=== PATIENT | female | born 1975 | race Caucasian/White ===

== ENCOUNTER 2017-02-24 10:20 | Outpatient (CLI) ==
[2016-01-15 15:41] VITALS: BMI 37.3
--- NOTE | 2017-02-24 10:56 | DI ---
EXAM: KUB. History: Constipation. Findings: Nonspecific but nonobstructive bowel gas pattern. Moderate colonic stool. No free intrap eritoneal air. No acute osseous abnormalities. No suspicious calcifications. Impression: 1. Nonspecific but nonobstructive bowel gas pattern. 2. Moderate colonic stool.
== END 2017-02-24 10:21 | disposition home or self-care (01) ==
LOC: RAD 10:20
PROVIDERS: ATTEND Physician Assistant Medical
DX: K59.09 Other constipation (principal)

== ENCOUNTER 2017-06-29 12:16 | Outpatient (CLI) ==
[2016-01-15 15:41] VITALS: BMI 37.3
== END 2017-06-29 12:17 | disposition home or self-care (01) ==
LOC: LAB 12:16
PROVIDERS: ATTEND Psychiatry & Neurology Neurology
DX: G83.4 Cauda equina syndrome (principal); G89.4 Chronic pain syndrome; R20.2 Paresthesia of skin; R53.1 Weakness
CPT/HCPCS: 36415; 82607; 82746; 82947; 84165; 84436; 86038; 86430; 86592

== ENCOUNTER 2018-01-25 07:41 | Emergency (ER) ==
[2018-01-25 07:56] VITALS: BP 113/73; TEMP 97.5; BMI 40.6
--- NOTE | 2018-01-25 08:10 | ED.PDOC ---
General ED Provider: Dr. AUSTIN GARCIA Chief Complaint: Toe Pain/Injury Stated Complaint: Lt 5th toe and outer foot bruised. Unware of injury. Just noted yesterday and in fact her Lt 5th toe distally was turned outward and she twisted it back into place. Has 10 yrs hx cauda equina syndrome and has no perception of pain or sensation below her pelvis/waist region. Ambulates with use of cane. Time Seen by Physician: 08:00 Mode of Arrival: Walk-In Information Source: Patient Exam Limitations: No limitations Primary Care Provider: NENA WATTS Nursing and Triage Documentation Reviewed and Agree: Yes Does patient meet sepsis criteria?: No System Inflammatory Response Syndrome: Not Applicable Sepsis Protocol: For patient's 13 years and over: Temp is 96.8 and below OR 101 and greater Pulse >90 BPM Resp >20/minute Acutely Altered Mental Status Are patient's symptoms suggestive of a new infection, such as: -Pneumonia -Skin, Soft Tissue -Endocarditis -UTI -Bone, Joint Infection -Implantable Device -Acute Abdominal Infection -Wound Infection -Meningitis -Blood Stream Catheter Infection -Unknown Musculoskeletal Complaint Exam - Ankle/Foot Complaint/Exam Location of Injury: Reports: Left, Toe #5 Mechanism of Injury: Reports: No known trauma Onset/Duration: 24 hrs Symptoms Are: Reports: Still present Initial Severity: Moderate Current Severity: Moderate Location: Reports: Discrete Character: Reports: Unable to describe Alleviating: Reports: None Aggravating: Reports: None Able to Bear Weight: Yes Associated Signs and Symptoms: Reports: Swelling, Bruising Review of Systems - Review Of Systems Constitutional: Reports: No symptoms Eyes: Reports: No symptoms Ears, Nose, Mouth, Throat: Reports: No symptoms Respiratory: Reports: No symptoms Cardiac: Reports: No symptoms GI: Reports: No symptoms : Reports: No symptoms Musculoskeletal: Reports: No symptoms Skin: Reports: No symptoms Neurological: Reports: No symptoms Endocrine: Reports: No symptoms Hematologic/Lymphatic: Reports: No symptoms All Other Systems: Reviewed and Negative Past Medical History - Past Medical History Previously Healthy: Yes Endocrine: Reports: None Cardiovascular: Reports: None Respiratory: Reports: None Hematological: Reports: None Gastrointestinal: Reports: None Genitourinary: Reports: None Neuro/Psych: Reports: Other (CAUDA EQUINA ) Musculoskeletal: Reports: None Cancer: Reports: None Last Menstrual Period: now Other Pertinent Past Medical History: BACK, TONSILLS/ADENOIDS, JAW - Surgical History General Surgical History: Reports: Orthopedic (JAW), Back Surgery, Other ( BACK , JAW) - Family History Family History: Reports: Unknown - Social History Smoking Status: Never smoker Hx Substance Use: No Alcohol Screening: Occasionally Physical Exam - Physical Exam Appearance: Well-appearing, No pain distress, Well-nourished Eyes: CONSTANZA, EOMI, Conjunctiva clear ENT: Ears normal, Nose normal, Oropharynx normal Respiratory: Airway patent, Breath sounds clear, Breath sounds equal, Respirations nonlabored Cardiovascular: RRR, Pulses normal, No rub, No murmur GI/: Soft, Nontender, No masses, Bowel sounds normal, No Organomegaly Musculoskeletal: Normal strength, ROM intact, No edema, No calf tenderness Skin: Warm, Dry, Normal color Neurological: Sensation intact, Motor intact, Reflexes intact, Cranial nerves intact, Alert, Oriented Psychiatric: Affect appropriate, Mood appropriate Interpretation - Radiology Interpretation Radiology Interpretation By: Radiologist Radiology Results: Positive Xray Comments: possible small/ displaced chip fracture distal aspect 5th proximal phalynx Re-Evaluation - Re-Evaluation Time of Re-Evaluation: 08:55 Status: Unchanged Critical Care Note - Critical Care Note Total Time (mins): 0 Course - Course Orders, Labs, Meds: Orders Category Date Time Status FOOT, LEFT 3 VIEWS Stat RADS 01/25/18 08:12 Ordered Vital Signs: Temp Pulse Resp BP Pulse Ox 01/25/18 07:42 97.5 F L 53 L 20 113/73 98 Departure - Departure Time of Disposition: 08:55 Disposition: HOME SELF-CARE Discharge Problem: Fracture of proximal phalanx of lesser toe of left foot Instructions: Toe Fracture (ED) Condition: Good Pt referred to PMD for follow-up: Yes (1wk) IPMP verified?: No Additional Instructions: Devin splint Lt 5 th toe Tylenol or advil for pain Elevate, ice for swelling See PCP in next week Allergies/Adverse Reactions: Allergies No Known Allergies Allergy (Verified 01/25/18 07:53) Home Medications: Ambulatory Orders Gabapentin [Neurontin] 600 mg PO QID 11/14/14 Hydrocodone Bit/Acetaminophen [[place] 7.5-325] 7.5 mg PO TID PRN 11/14/14 Disposition Discussed With: Patient
--- NOTE | 2018-01-25 08:51 | DI ---
EXAM: Radiographs, left foot HISTORY: Left foot bruising at the level of the fifth toe and distal MTP joint. COMPARISON: 09/17/2013. TECHNIQUE: Three views. FINDINGS: Bone mineralization is decreased. Benign cyst at the base of the first proximal phalanx n oted. Prominent linear osseous fragment seen along the distal medial medial aspect of the fifth proxi mal phalanx on the frontal view only which appears different than on the prior examination. Otherwis e there is no fracture. No localized soft tissue abnormalities seen. IMPRESSION: Small displaced fracture fragment off the distal aspect of the fifth proximal phalanx is not excluded . Consider follow-up fifth toe radiographs if warranted.
== END 2018-01-25 09:09 | disposition home or self-care (01) ==
LOC: ED 07:41
DX: S92.512A Displaced fracture of proximal phalanx of left lesser toe(s), initial encounter for closed fracture (principal); W22.8XXA Striking against or struck by other objects, initial encounter; G83.4 Cauda equina syndrome
CPT/HCPCS: 99283

== ENCOUNTER 2018-02-22 11:46 | Outpatient (CLI) ==
--- NOTE | 2018-02-22 13:14 | DI ---
EXAM: KUB. History: Abdominal pain. Findings: Nonspecific but nonobstructive bowel gas pattern. Scattered colonic stool. No free intra peritoneal air. No suspicious calcifications. Facet hypertrophy within the lower lumbar spine. Mild to moderate degenerative changes of the right hip joint. Impression: No acute radiographic findings within the abdomen.
== END 2018-02-22 11:47 | disposition home or self-care (01) ==
LOC: RAD 11:46
PROVIDERS: ATTEND Physician Assistant
DX: R10.9 Unspecified abdominal pain (principal)

== ENCOUNTER 2018-03-27 16:59 | Emergency (ER) ==
[2018-03-27 17:04] VITALS: BMI 40.1
[2018-03-27] MEDS ORDERED: ZOFRAN 4 MG/2 ML IVP STA (19:37)
[2018-03-27] MEDS ORDERED: IMITREX SUBCUT STA (19:37)
[2018-03-27] MEDS ORDERED: SODIUM CHLORIDE 1,000 ML IV STA (19:37)
--- NOTE | 2018-03-27 19:41 | ED.PDOC ---
General ED Provider: Dr. CARRIE KELLEY Chief Complaint: Respiratory Complaint Stated Complaint: Patient is a 42 year old female who comes to the ER with left temporal headache for the past 5 days. Time Seen by Physician: 19:40 Mode of Arrival: Walk-In Information Source: Patient Exam Limitations: No limitations Primary Care Provider: NENA WATTS Nursing and Triage Documentation Reviewed and Agree: Yes Does patient meet sepsis criteria?: No System Inflammatory Response Syndrome: Not Applicable Sepsis Protocol: For patient's 13 years and over: Temp is 96.8 and below OR 101 and greater Pulse >90 BPM Resp >20/minute Acutely Altered Mental Status Are patient's symptoms suggestive of a new infection, such as: -Pneumonia -Skin, Soft Tissue -Endocarditis -UTI -Bone, Joint Infection -Implantable Device -Acute Abdominal Infection -Wound Infection -Meningitis -Blood Stream Catheter Infection -Unknown Neurological Complaint Exam - Headache Complaint/Exam Onset: Sudden Duration: constant Symptoms Are: Still present Timing: Constant Worst Headache Ever: No Initial Severity: Severe Current Severity: Severe Location: Left, Temporal Character: Reports: Throbbing Aggravating: Reports: Bright lights Alleviating: Reports: None Associated Signs and Symptoms: Reports: Dizziness, Nausea, Vomiting (x 1 yesterday ), Fever (with chills ). Denies: Neck pain, Neck stiffness, Decreased LOC, Visual changes Related History: Denies: Similar episode, Recent trauma, Remote trauma Related Surgical History: Reports: None SAH Risk Factors: Reports: None Meningitis Risk Factors: Reports: None SDH Risk Factors: Reports: None Temporal Arteritis Risk Factors: Reports: Female, . Denies: Over 60 years old, Polymyalgia Rheumatica Normal Head CT Within Last 12 Months: No Temporal Artery Tenderness: Present: None Sinus Tenderness: Present: None TMJ Tenderness: Present: None Glascow Coma Scale (see protocol): 15 Meningeal Signs Positive: No Pain on Passive Flexion-Positive Kernig's: No ROM Limited In: No Limitiations Focal Weakness: Present: None Focal Sensory Loss: Present: None Gait: Normal Nystagmus Present: No Gag Reflex Present: No [id number]: Normal Findings Romberg Test Positive: No Babinski Sign: Negative Right, Negative Left Heel to Toe Normal: Yes Head Picture: 1 - tenderness to palpation. Differential Diagnoses: Migraine, Viral Syndrome Review of Systems - Review Of Systems Constitutional: Reports: Chills, Fever (Low grade temp ) Eyes: Reports: Photophobia Ears, Nose, Mouth, Throat: Reports: No symptoms Respiratory: Reports: No symptoms Cardiac: Reports: No symptoms GI: Reports: No symptoms : Reports: No symptoms Musculoskeletal: Reports: No symptoms Skin: Reports: No symptoms Neurological: Reports: Anxiety, Headache, Numbness (lower extremities due to chronic condition cauda Aquina ), Weakness (lower extremities due to chronic condition cauda Aquina ) Endocrine: Reports: Excessive sweating Hematologic/Lymphatic: Reports: No symptoms All Other Systems: Reviewed and Negative Past Medical History - Past Medical History Previously Healthy: Yes Endocrine: Reports: None Cardiovascular: Reports: None Respiratory: Reports: None Hematological: Reports: None Gastrointestinal: Reports: None Genitourinary: Reports: None Neuro/Psych: Reports: Other (CAUDA EQUINA ) Musculoskeletal: Reports: Back Pain (chronic ) Cancer: Reports: None Last Menstrual Period: 1 week ago - Surgical History General Surgical History: Reports: Tonsillectomy, Adenoidectomy, Orthopedic (JAW ), Back Surgery, Other (JAW) - Family History Family History: Reports: Unknown - Social History Smoking Status: Never smoker Hx Substance Use: No Alcohol Screening: Occasionally Physical Exam - Physical Exam Appearance: Ill-appearing, Obese Ill-appearing: Mild Pain Distress: Severe (7/10) Eyes: CONSTANZA, EOMI, Conjunctiva clear ENT: Ears normal, Nose normal, Oropharynx normal Neck: Supple Respiratory: Airway patent, Breath sounds clear, Breath sounds equal, Respirations nonlabored Cardiovascular: RRR GI/: Soft, Nontender, No masses, Bowel sounds normal, No Organomegaly Musculoskeletal: Normal strength, ROM intact, No edema, No calf tenderness Skin: Warm, Dry, Normal color Neurological: Sensation intact, Motor intact, Reflexes intact, Cranial nerves intact, Alert, Oriented Psychiatric: Anxious - NIH Stroke Scale 1a. Level of Consciousness: 0=Alert and keenly responsive 1b. Level of Consciousness Questions: 0=Answers correctly to two questions 2. Best Gaze: 0=Normal 3. Visual: 0=No visual loss 4. Facial Palsy: 0=Normal 5a. Motor Left Arm: 0=No drift,arm holds 90 degrees for 10 sec., leg 30 degrees for 5 sec. 5b. Motor Right Arm: 0=No drift,arm holds 90 degrees for 10 sec., leg 30 degrees for 5 sec. 6a. Motor Left Le=Drifts before 10 seconds arm, 5 seconds leg (chronic) 6b. Motor Right Le=No drift,arm holds 90 degrees for 10 sec., leg 30 degrees for 5 sec. 8. Sensory: 1=Mild to moderate sensory loss (chronic) 9. Best Language: 0=No aphasia 10. Dysarthria: 0=Normal 11. Extincion and Inattention: 0=Normal Stroke Scale Total: 2 Interpretation - Radiology Interpretation Radiology Interpretation By: Radiologist Radiology Results: Negative Exam Interpreted: CXR, CT Scan Re-Evaluation - Re-Evaluation Time of Re-Evaluation: 20:47 Status: Improved Vital Signs Stable: Yes Pain Level: gone Appearance: NAD Critical Care Note - Critical Care Note Total Time (mins): 30 Course - Course Hematology/Chemistry: 03/27/18 19:55 03/27/18 19:55 Orders, Labs, Meds: Lab Review 03/27/18 03/27/18 03/27/18 19:45 19:55 19:55 WBC 11.24 H RBC 4.03 L Hgb 12.7 Hct 38.1 MCV 94.5 MCH 31.5 H MCHC 33.3 RDW Coeff of Sumi 11.7 Plt Count 253 Immature Gran % (Auto) 0.5 Neut % (Auto) 74.4 Lymph % (Auto) 15.8 [place] % (Auto) 7.7 Eos % (Auto) 1.2 Baso % (Auto) 0.4 Immature Gran # (Auto) 0.1 Neut # (Auto) 8.4 H Lymph # (Auto) 1.8 [place] # (Auto) 0.9 Eos # (Auto) 0.1 Baso # (Auto) 0.1 ESR Sodium 136.4 L Potassium 4.21 Chloride 102.2 Carbon Dioxide 29.6 Anion Gap 8.81 BUN 14.6 Creatinine 1.34 H Estimated GFR (MDRD) 44.00 BUN/Creatinine Ratio 10.89 Glucose 101.8 Lactic Acid Calcium 8.93 Total Bilirubin 0.40 AST 39.8 H ALT 53.2 H Alkaline Phosphatase 224.2 H Total Creatine Kinase Troponin I Total Protein 7.35 Albumin 3.81 Globulin 3.54 Albumin/Globulin Ratio 1.07 Procalcitonin Influ A Molecular Assay Negative by naat Influ B Molecular Assay Negative by naat 03/27/18 03/27/18 03/27/18 19:55 19:55 19:55 WBC RBC Hgb Hct MCV MCH MCHC RDW Coeff of Sumi Plt Count Immature Gran % (Auto) Neut % (Auto) Lymph % (Auto) [place] % (Auto) Eos % (Auto) Baso % (Auto) Immature Gran # (Auto) Neut # (Auto) Lymph # (Auto) [place] # (Auto) Eos # (Auto) Baso # (Auto) ESR 85 H Sodium Potassium Chloride Carbon Dioxide Anion Gap BUN Creatinine Estimated GFR (MDRD) BUN/Creatinine Ratio Glucose Lactic Acid 1.14 Calcium Total Bilirubin AST ALT Alkaline Phosphatase Total Creatine Kinase Troponin I Total Protein Albumin Globulin Albumin/Globulin Ratio Procalcitonin 0.70 Influ A Molecular Assay Influ B Molecular Assay 03/27/18 19:55 WBC RBC Hgb Hct MCV MCH MCHC RDW Coeff of Sumi Plt Count Immature Gran % (Auto) Neut % (Auto) Lymph % (Auto) [place] % (Auto) Eos % (Auto) Baso % (Auto) Immature Gran # (Auto) Neut # (Auto) Lymph # (Auto) [place] # (Auto) Eos # (Auto) Baso # (Auto) ESR Sodium Potassium Chloride Carbon Dioxide Anion Gap BUN Creatinine Estimated GFR (MDRD) BUN/Creatinine Ratio Glucose Lactic Acid Calcium Total Bilirubin AST ALT Alkaline Phosphatase Total Creatine Kinase 32.7 Troponin I < 0.012 Total Protein Albumin Globulin Albumin/Globulin Ratio Procalcitonin Influ A Molecular Assay Influ B Molecular Assay Orders Category Date Time Status EKG-(ED ONLY) Stat CARDIO 03/27/18 19:45 Completed ED APPLY O2 .ONCE EMERGENCY 03/27/18 19:38 Active ED LOOM DOFFER APPLIED .ONCE EMERGENCY 03/27/18 19:38 Active ED IV/MEDIPORT/POWERPORT .ONCE EMERGENCY 03/27/18 20:37 Active ED VITAL SIGNS Q1HR EMERGENCY 03/27/18 19:38 Active BLOOD CULTURE (ED ONLY) Stat LAB 03/27/18 19:55 Received CBC W/ AUTO DIFF Stat LAB 03/27/18 19:55 Completed COMPREHENSIVE METABOLIC PANEL Stat LAB 03/27/18 19:55 Completed CPK [CREATINE KINASE] Stat LAB 03/27/18 19:55 Completed CRP [C-REACTIVE PROTEIN] Stat LAB 03/27/18 19:55 Received ESR Stat LAB 03/27/18 19:55 Completed FLU A/B MOLECULAR Stat LAB 03/27/18 19:45 Completed LACTIC ACID Stat LAB 03/27/18 19:55 Completed MOLECULAR GROUP A STREP Stat LAB 03/27/18 19:45 Completed PROCALCITONIN Stat LAB 03/27/18 19:55 Completed TROPONIN I Stat LAB 03/27/18 19:55 Completed 0.9 % Sodium Chloride [Saline Flush] MEDS 03/27/18 20:36 Ordered 1 syr IVF PRN PRN Acetaminophen [Tylenol] MEDS 03/27/18 19:42 Discontinued 1,000 mg PO ONCE STA Ondansetron HCl/Pf [Zofran 4 mg/2 ml] MEDS 03/27/18 19:37 Discontinued 4 mg IVP ONCE STA Sodium Chloride 0.9% [Sodium Chloride] 1,000 ml MEDS 03/27/18 19:37 Active IV 100 mls/hr Sumatriptan Succinate [Imitrex] MEDS 03/27/18 19:37 Discontinued 6 mg SUBCUT ONCE STA CHEST, 2 VIEWS PA & LAT Stat RADS 03/27/18 19:[address] HEAD W/O CONTRAST Stat RADS 03/27/18 19:43 Completed Medications Generic Name Dose Route Start Last Admin Trade Name Freq PRN Reason Stop Dose Admin Sodium Chloride 1,000 mls @ 100 mls/hr 03/27/18 19:37 03/27/18 20:13 Sodium Chloride IV 03/28/18 05:36 100 mls/hr .Q10H STA Administration Sodium Chloride 1 syr 03/27/18 20:36 Saline Flush IVF PRN PRN To flush IV Discontinued Medications Generic Name Dose Route Start Last Admin Trade Name Freq PRN Reason Stop Dose Admin Acetaminophen 1,000 mg 03/27/18 19:42 03/27/18 20:04 Tylenol PO 03/27/18 19:43 1,000 mg ONCE STA Administration Ondansetron HCl 4 mg 03/27/18 19:37 03/27/18 20:14 Zofran 4 Mg/2 Ml IVP 03/27/18 19:38 4 mg ONCE STA Administration Sumatriptan Succinate 6 mg 03/27/18 19:37 03/27/18 20:04 Imitrex SUBCUT 03/27/18 19:38 6 mg ONCE STA Administration Vital Signs: Temp Pulse Resp BP Pulse Ox 03/27/18 17:00 99.9 F H 82 20 134/84 99 Departure - Departure Time of Disposition: 20:48 Disposition: HOME SELF-CARE Discharge Problem: Migraine headache Qualifiers: Migraine type: without aura Status migrainosus presence: without status migrainosus Intractability: not intractable Qualified Code(s): G43.009 - Migraine without aura, not intractable, without status migrainosus Instructions: Migraine Headache (ED) Condition: Good Pt referred to PMD for follow-up: Yes IPMP verified?: No Additional Instructions: Take medications as prescribed Follow up with PCP in 1-2 days Return if worse. Prescriptions: Butalb/Acetaminophen/Caffeine [Fioricet] 1 each PO TID PRN #20 tablet PRN Reason: Migraine headaches Allergies/Adverse Reactions: Allergies No Known Allergies Allergy (Verified 03/27/18 17:05) Home Medications: Ambulatory Orders Gabapentin [Neurontin] 600 mg PO QID 11/14/14 Hydrocodone Bit/Acetaminophen [[place] 7.5-325] 7.5 mg PO TID PRN 11/14/14 Butalb/Acetaminophen/Caffeine [Fioricet] 1 each PO TID PRN #20 tablet 03/27/18 Disposition Discussed With: Patient, Family
[2018-03-27] MEDS ORDERED: TYLENOL PO STA (19:42)
--- NOTE | 2018-03-27 20:11 | CT ---
EXAM: CT of the head without contrast. HISTORY: Left temporal headache. PROCEDURE: Contiguous axial CT images of the head without contrast with coronal reformats. FINDINGS: The ventricles and basal cisterns are normal in size and configuration. No evidence of m ass or midline shift. No intracranial hemorrhage or evidence of large vessel infarct. No extra-axia l fluid collection. The paranasal sinuses and mastoid air cells are well-aerated and normal in appea nasra. Impression: Negative CT of the head.
--- NOTE | 2018-03-27 20:31 | DI ---
EXAM: PA and lateral views of the chest HISTORY: Fever COMPARISON: None FINDINGS: The cardiomediastinal silhouette is normal. There is no pneumothorax or pleural effusion. There is no consolidation, nodule or mass. The osseous structures demonstrate mild degenerative di sease. There is separation of the right sternoclavicular joint, unchanged since 08/18/2011. IMPRESSION: No acute cardiopulmonary process
[2018-03-27 20:52] VITALS: BP 113/73; TEMP 99.6
== END 2018-03-27 21:36 | disposition home or self-care (01) ==
LOC: ED 16:59
DX: G43.009 Migraine without aura, not intractable, without status migrainosus (principal)
CPT/HCPCS: 36415; 80053; 82550; 83605; 84145; 84484; 85025; 85651; 86140; 87040; 87070; 87186; 87502; 87651; 93005; 93010; 96361; 96374; 99283

== ENCOUNTER 2018-03-29 12:10 | Outpatient (CLI) ==
[2018-03-29 12:36] VITALS: BMI 41.2
== END 2018-03-29 12:18 | disposition critical access hospital (66) ==
LOC: AMBL 12:10
PROVIDERS: ATTEND Emergency Medicine
DX: R51 Headache (principal)

== ENCOUNTER 2018-03-29 12:24 | Emergency (ER) ==
[2018-03-29 12:36] VITALS: BP 106/67; TEMP 99.1; BMI 41.2
--- NOTE | 2018-03-29 13:00 | ED.PDOC ---
General ED Provider: Dr. AUSTIN GARCIA Chief Complaint: Headache Stated Complaint: C/O migraine H/A since 03/23. Had a fever at that time. Still has H/A. Was sent to ER per order Adi José [facility], [facility] due to positive blood cultures. Continues to C/O migraine. Has not been on antibiotic per pt. States she self caths due to chronic Cauda Equina.Hx UTI. Not on antibiotics. Denies fever or chills Time Seen by Physician: 12:45 Mode of Arrival: Ambulance Information Source: Patient Exam Limitations: No limitations Primary Care Provider: NENA JOSÉ Seen Within Last 72 Hours for Same Complaint By: ED Nursing and Triage Documentation Reviewed and Agree: Yes Does patient meet sepsis criteria?: No System Inflammatory Response Syndrome: Not Applicable Sepsis Protocol: For patient's 13 years and over: Temp is 96.8 and below OR 101 and greater Pulse >90 BPM Resp >20/minute Acutely Altered Mental Status Are patient's symptoms suggestive of a new infection, such as: -Pneumonia -Skin, Soft Tissue -Endocarditis -UTI -Bone, Joint Infection -Implantable Device -Acute Abdominal Infection -Wound Infection -Meningitis -Blood Stream Catheter Infection -Unknown Neurological Complaint Exam - Headache Complaint/Exam Onset: Gradual Symptoms Are: Still present Timing: Constant Episodes Lasting: Hours Worst Headache Ever: No Initial Severity: Moderate Current Severity: Mild Location: Frontal, Parietal Character: Reports: Dull, Throbbing, Pressure Aggravating: Reports: None Alleviating: Reports: Rest, Position change Associated Signs and Symptoms: Denies: Dizziness, Seizure, Nausea, Vomiting, Sinus pressure, Fever, Neck pain, Neck stiffness, Decreased LOC, Visual changes Related History: Reports: Similar episode Related Surgical History: Reports: None Meningitis Risk Factors: Reports: None SDH Risk Factors: Reports: None Temporal Arteritis Risk Factors: Reports: None Normal Head CT Within Last 12 Months: Yes Fundoscopic Exam: Present: Normal Findings Papilledema Present: No Temporal Artery Tenderness: Present: None Sinus Tenderness: Present: None TMJ Tenderness: Present: None Meningeal Signs Positive: No Pain on Passive Flexion-Positive Kernig's: No ROM Limited In: No Limitiations Focal Weakness: Present: None Focal Sensory Loss: Present: None Gait: Normal Nystagmus Present: No Gag Reflex Present: Yes [id number]: Normal Findings Differential Diagnoses: Migraine, Other (UTI) Review of Systems - Review Of Systems Constitutional: Reports: No symptoms Eyes: Reports: No symptoms Ears, Nose, Mouth, Throat: Reports: No symptoms Respiratory: Reports: No symptoms Cardiac: Reports: No symptoms GI: Reports: No symptoms : Reports: No symptoms Musculoskeletal: Reports: No symptoms Skin: Reports: No symptoms Neurological: Reports: No symptoms Endocrine: Reports: No symptoms Hematologic/Lymphatic: Reports: No symptoms All Other Systems: Reviewed and Negative Past Medical History - Past Medical History Previously Healthy: Yes Endocrine: Reports: None Cardiovascular: Reports: None Respiratory: Reports: None Hematological: Reports: None Gastrointestinal: Reports: None Genitourinary: Reports: None Neuro/Psych: Reports: Other (CAUDA EQUINA ) Musculoskeletal: Reports: Back Pain (chronic ) Cancer: Reports: None Last Menstrual Period: 1 1/2 weeks Other Pertinent Past Medical History: BACK, TONSILLS/ADENOIDS, JAW - Surgical History General Surgical History: Reports: Tonsillectomy, Adenoidectomy, Orthopedic (JAW ), Back Surgery, Other (JAW) - Family History Family History: Reports: Unknown - Social History Smoking Status: Never smoker Hx Substance Use: No Alcohol Screening: Occasionally Physical Exam - Physical Exam Appearance: Well-appearing, No pain distress, Well-nourished Ill-appearing: None Pain Distress: None Eyes: CONSTANZA, EOMI, Conjunctiva clear ENT: Ears normal, Nose normal, Oropharynx normal Respiratory: Airway patent, Breath sounds clear, Breath sounds equal, Respirations nonlabored Cardiovascular: RRR, Pulses normal, No rub, No murmur GI/: Soft, Nontender, No masses, Bowel sounds normal, No Organomegaly Musculoskeletal: Normal strength, ROM intact, No edema, No calf tenderness Skin: Warm, Dry, Normal color Neurological: Sensation intact, Motor intact, Reflexes intact, Cranial nerves intact, Alert, Oriented Psychiatric: Affect appropriate, Mood appropriate Critical Care Note - Critical Care Note Total Time (mins): 0 Course - Course Hematology/Chemistry: 03/29/18 13:30 03/29/18 13:30 Orders, Labs, Meds: Lab Review 03/29/18 03/29/18 03/29/18 13:30 13:30 15:34 WBC 11.84 H RBC 3.74 L Hgb 11.9 L Hct 35.1 L MCV 93.9 MCH 31.8 H MCHC 33.9 RDW Coeff of Sumi 11.9 Plt Count 254 Immature Gran % (Auto) Automatic Vulcanizing Lead Operator Neut % (Auto) Automatic Vulcanizing Lead Operator Lymph % (Auto) Automatic Vulcanizing Lead Operator [place] % (Auto) Automatic Vulcanizing Lead Operator Eos % (Auto) Automatic Vulcanizing Lead Operator Baso % (Auto) Automatic Vulcanizing Lead Operator Immature Gran # (Auto) Automatic Vulcanizing Lead Operator Neut # (Auto) Automatic Vulcanizing Lead Operator Lymph # (Auto) Automatic Vulcanizing Lead Operator [place] # (Auto) Automatic Vulcanizing Lead Operator Eos # (Auto) Automatic Vulcanizing Lead Operator Baso # (Auto) Automatic Vulcanizing Lead Operator Neutrophils % (Manual) 60.0 Band Neutrophils % 4.0 Lymphocytes % (Manual) 27.0 Monocytes % (Manual) 3.0 Eosinophils % (Manual) 1.0 Reactive Lymphocytes 5.0 Plt Morphology Comment Normal Anisocytosis Not present RBC Morph Comment Normal Sodium 136.0 L Potassium 4.27 Chloride 101.1 Carbon Dioxide 32.8 H Anion Gap 6.37 BUN 12.9 Creatinine 1.29 Estimated GFR (MDRD) 46.00 BUN/Creatinine Ratio 10.00 Glucose 101.4 Calcium 8.79 Total Bilirubin 0.41 AST 33.3 ALT 31.6 Alkaline Phosphatase 204.5 H Total Protein 7.32 Albumin 3.61 Globulin 3.71 Albumin/Globulin Ratio 0.97 Urine Color Yellow Urine Clarity Cloudy Urine pH 7.0 Ur Specific Bonner 1.015 Urine Protein 1+ Urine Glucose (UA) Negative Urine Ketones Negative Urine Blood 3+ Urine Nitrite Negative Urine Bilirubin Negative Urine Urobilinogen 0.2 Ur Leukocyte Esterase 2+ Urine Microscopic RBC 5-10 Urine Microscopic WBC Tntc Ur Squamous Epith Cells Not present Urine Bacteria 4+ Orders Category Date Time Status CBC W/ AUTO DIFF Stat LAB 03/29/18 13:30 Completed CMP [COMPREHENSIVE METABOLIC PANEL] Stat LAB 03/29/18 13:30 Completed MANUAL DIFFERENTIAL Stat LAB 03/29/18 13:30 Completed URINALYSIS C & S IF INDICATED Stat LAB 03/29/18 15:34 Completed URINE CULTURE Stat LAB 03/29/18 15:34 Completed Ceftriaxone Sodium [Rocephin] MEDS 03/29/18 15:25 Discontinued 1 gm IM ONCE STA Lidocaine HCl/Pf [Lidocaine HCl 1% Sdv] MEDS 03/29/18 15:25 Discontinued 2.1 ml IM ONCE STA Sumatriptan Succinate [Imitrex] MEDS 03/29/18 15:24 Discontinued 6 mg SUBCUT ONCE STA Medications Discontinued Medications Generic Name Dose Route Start Last Admin Trade Name Freq PRN Reason Stop Dose Admin Ceftriaxone Sodium 1 gm 10/23/18 15:25 03/29/18 15:48 Rocephin IM 03/29/18 15:26 1 gm ONCE STA Administration Lidocaine HCl 2.1 ml 03/29/18 15:25 03/29/18 15:49 Lidocaine Hcl 1% Sdv IM 03/29/18 15:26 2.1 ml ONCE STA Administration Sumatriptan Succinate 6 mg 03/29/18 15:24 03/29/18 15:47 Imitrex SUBCUT 03/29/18 15:25 6 mg ONCE STA Administration Vital Signs: Temp Pulse Resp BP Pulse Ox 03/29/18 12:27 99.1 F 76 20 106/67 99 Departure - Departure Time of Disposition: 16:30 Disposition: HOME SELF-CARE Discharge Problem: UTI (urinary tract infection), Positive blood culture, Migraine Instructions: Urinary Tract Infection in Women (ED) Condition: Good Pt referred to PMD for follow-up: Yes IPMP verified?: No Additional Instructions: Take meds as directed Follow up pcp 1 week Return ER if worsens Prescriptions: Levofloxacin [Levaquin] 500 mg PO ONCE #7 tablet Sumatriptan Succinate [Imitrex] 25 mg PO ONCE #10 tablet Allergies/Adverse Reactions: Allergies No Known Allergies Allergy (Verified 03/29/18 12:36) Home Medications: Ambulatory Orders Gabapentin [Neurontin] 600 mg PO QID 11/14/14 Hydrocodone Bit/Acetaminophen [[place] 7.5-325] 7.5 mg PO TID PRN 11/14/14 Butalb/Acetaminophen/Caffeine [Fioricet] 1 each PO TID PRN #20 tablet 03/27/18 Levofloxacin [Levaquin] 500 mg PO ONCE #7 tablet 03/29/18 Sumatriptan Succinate [Imitrex] 25 mg PO ONCE #10 tablet 03/29/18 Disposition Discussed With: Patient
[2018-03-29] MEDS ORDERED: IMITREX SUBCUT STA (15:24)
[2018-03-29] MEDS ORDERED: LIDOCAINE HCL 1% SDV IM STA (15:25)
[2018-03-29] MEDS ORDERED: ROCEPHIN IM STA (15:25)
== END 2018-03-29 16:55 | disposition home or self-care (01) ==
LOC: ED 12:24
DX: N39.0 Urinary tract infection, site not specified (principal); G43.909 Migraine, unspecified, not intractable, without status migrainosus; Z87.440 Personal history of urinary (tract) infections; G83.4 Cauda equina syndrome
CPT/HCPCS: 36415; 80053; 81001; 85007; 85025; 87086; 87186; 96372; 99283

== ENCOUNTER 2018-04-15 12:19 | Outpatient (CLI) | END 2018-04-15 12:20 | disposition home or self-care (01) | LOC: LAB 12:19 | PROVIDERS: ATTEND Physician Assistant | DX: R78.81 Bacteremia (principal) | CPT/HCPCS: 36415; 80053; 85025; 85027; 87040 ==

== ENCOUNTER 2018-06-24 10:52 | Outpatient (CLI) ==
--- NOTE | 2018-06-24 11:36 | CT ---
EXAM: CT abdomen pelvis HISTORY: Hematuria TECHNIQUE: CT abdomen and pelvis without contrast. Multiplanar images provided. 3 mm sections. FINDINGS: No comparison. Diagnostic limitations may exist without including contrast enhanced images. The upper right renal c ortex has a 2.1 cm cystic appearing mass, probable cyst. No nephrolithiasis is seen. There is no si gnificant perinephric fat stranding. There is dilatation of the right renal collecting system, mild to moderate in degree. No visible calcified ureteral calculus. Left ureter is normal. There is sig nificant circumferential urinary bladder wall thickening. No focal hepatic or splenic lesion. Gallbladder, pancreas and adrenal glands are within normal limit s. Normal adrenal glands. Normal abdominal aorta. Stomach appears normal. Normal appendix and gen eral bowel gas pattern. Uterus is present. There is no ascites or inflammatory infiltration of the abdominal fat. Ventral abdominal wall is intact. The veins are within normal limits. Lung bases ar e clear. No pneumoperitoneum. IMPRESSION: Mild to moderate right hydronephrosis and ureteral dilatation without obstructing calcu kaylynn identified or clear etiology. There is significant circumferential urinary bladder wall thickeni ng which in part may account for this obstruction although the left collecting system appears normal. Etiology of the urinary bladder appearance is indeterminate. No nephrolithiasis. Further workup i s recommended. There is a probable right upper renal cortical cyst which can be evaluated by ultraso und.
== END 2018-06-24 10:53 | disposition home or self-care (01) ==
LOC: RAD 10:52
PROVIDERS: ATTEND Urology
DX: R31.21 Asymptomatic microscopic hematuria (principal)
CPT/HCPCS: 74176

== ENCOUNTER 2018-07-01 08:58 | Outpatient (CLI) ==
--- NOTE | 2018-07-01 09:37 | DI ---
EXAM: Five views of the cervical spine HISTORY: Cervical stenosis. TECHNIQUE: AP lateral, oblique and open mouth views of the cervical spine were obtained. FINDINGS: There is straightening of the cervical spine. The prevertebral soft tissues are normal. There is a normal alignment of the facet joints. The odontoid process appears intact. There is mild degenerative disc disease and cervical spondylosis seen from the C4 down to the C6 level. IMPRESSION: Mild degenerative disc disease and cervical spondylosis seen from the C4 down to the C6 level. There is straightening of the cervical spine and this may represent muscle spasm. No acute fractures are seen.
--- NOTE | 2018-07-02 07:44 | MRI ---
EXAM: Cervical spine MRI without contrast. HISTORY: Cervical spine stenosis. COMPARISON: Cervical spine radiographs 07/01/2018. TECHNIQUE: Multiplanar, multisequence MR images were acquired of the cervical spine without contrast . FINDINGS: The craniocervical junction is normal and the cervical cord has no abnormal T2 hyperintens ities. There is minor mid cervical levoscoliosis and minor rightward curvature of the upper thoracic spine. There is straightening of the usual cervical lordosis and there is ankylosis of the C5 and C 6 vertebra. There is minor cervical ventral spondylosis and disc dessication is present from C2-3 to C4-5 and at C6-7. There is moderate lingual tonsillar hypertrophy and small bilateral anterior cerv ical triangle lymph nodes are present which are slightly larger and more numerous than is typical. T hese are not abnormal in appearance or by MR size criteria and may represent normal variation or reac tive lymphadenopathy. Visualized lung apices are clear. C2-3: There is a minor right posterior disc bulge and thickening of the posterior longitudinal ligam ent. Minor right uncovertebral hypertrophy is present. There is no central canal stenosis or forami nal stenosis. C3-4: There is a mild posterior disc bulge that is asymmetric to the right , bilateral uncovertebral hypertrophy, greater on the right and mild right facet arthropathy.There is mild right neural forami nal stenosis. C4-5: There is a mild dorsal spondylotic ridge that is asymmetric to the right and bilateral uncover tebral hypertrophy, greater on the right. There is minor right and mild left neural foraminal stenos is. C5-6: There is ankylosis of the C5 and C6 vertebra and there is a minor dorsal spondylotic ridge emiliano t is asymmetric to the left and left uncovertebral hypertrophy. There is no central canal stenosis o r foraminal stenosis. C6-7: There is a mild diffuse spondylotic disc bulge and bilateral uncovertebral hypertrophy which c auses moderate right and mild left neural foraminal stenosis. Ligamentum flavum hypertrophy is pres ent. There is mild spinal stenosis. AP diameter of the thecal sac is 8.8 mm. C7-T1: There is a minor disc bulge without central canal stenosis. Neural foramina are patent. IMPRESSION: 1. Mild cervical degenerative spondylosis most significant at C6-7. 2. Ankylosis C5 and C6 vertebra. 3. Mild spinal stenosis C6-7 and moderate right C6-7 neural foraminal stenosis.
== END 2018-07-01 08:59 | disposition home or self-care (01) ==
LOC: RAD 08:58
PROVIDERS: ATTEND Pain Medicine Interventional Pain Medicine
DX: M51.16 Intervertebral disc disorders with radiculopathy, lumbar region (principal); M51.17 Intervertebral disc disorders with radiculopathy, lumbosacral region; M48.02 Spinal stenosis, cervical region; M48.03 Spinal stenosis, cervicothoracic region; M50.31 Other cervical disc degeneration, high cervical region; M50.321 Other cervical disc degeneration at C4-C5 level; M50.322 Other cervical disc degeneration at C5-C6 level; M50.323 Other cervical disc degeneration at C6-C7 level; M50.33 Other cervical disc degeneration, cervicothoracic region; M47.812 Spondylosis without myelopathy or radiculopathy, cervical region; M47.813 Spondylosis without myelopathy or radiculopathy, cervicothoracic region
CPT/HCPCS: 36415; 82565

== ENCOUNTER 2018-07-11 14:07 | Outpatient (CLI) ==
--- NOTE | 2018-07-11 16:02 | DI ---
EXAM: LUMBAR SPINE 5 VIEWS HISTORY: Lower back pain FINDINGS: Compared to 11/26/2011. No noticeable scoliosis. General bone density appears normal. S acroiliac joints are within normal limits. Oblique views reveal intact pars interarticularis structu res. There is mild to moderate degenerative facet and disc disease lower spine and lumbosacral junct ion. These degenerative changes are more noticeable since previous exam. IMPRESSION: 1. Newly developed or worsening degenerative changes at the lumbosacral junction currently mild to m oderate.
--- NOTE | 2018-07-12 14:08 | MRI ---
EXAM: Lumbar spine MRI without contrast. HISTORY: Lumbar disc disorder with radiculopathy. COMPARISON: Lumbar spine radiographs 07/11/2018. TECHNIQUE: Multiplanar, multisequence MR images were acquired of the lumbar spine before and after a dministration of intravenous contrast. FINDINGS: Five non-rib bearing lumbar vertebra are present. Conus medullaris ends at L1-2 and has n ormal morphology and signal intensity. There is a thin filum terminale fibrolipoma from mid L4-L5. There is no abnormal leptomeningeal contrast enhancement. However, there is clumping of the nerve ro ots in the thecal sac beginning at L3 which extends to the bottom of the thecal sac at S1. Canal alycia meter is developmentally narrow. There is mild rightward curvature of the lower lumbar spine and the re is 2 mm rightward translation of L4 with respect to L3 and 5 mm rightward translation of L5 with r espect to L4. There is 1.5 mm retrolisthesis of L5 on S1. The lumbar vertebra are generally normal in height and intrinsic bone marrow signal. Small bridging osteophytes are present in the lower thor acic spine with mild endplate irregularity and disc desiccation at T10-11 and T11-12. At L3-4, there is mild irregular concavity of the endplates with moderate disc space narrowing and disc desiccation . At L4-5, there is a diffuse disc osteophyte complex that is asymmetric to the right with moderate to marked disc space narrowing that is greatest right laterally with mild diffuse endplate irregulari ty and extensive modic type two endplate change. At L5-S1, there is desiccation of the intervertebra l disc and moderate posterior disc space narrowing. The partially visualized liver, spleen and left kidney are unremarkable. Simple right renal cysts ar e present. There are no paravertebral masses. Artifact limits evaluation of the sacrum and both sac roiliac joints. T11-12: There is a minor left posterior spondylotic disc bulge and small broad-based anterior endpla te osteophytes. Minor left facet hypertrophy is present and there is mild left foraminal stenosis. T12-L1: The intervertebral disc is normal. There is mild left facet arthropathy and bilateral ligam entum flavum hypertrophy. There is no central canal stenosis or foraminal stenosis. L1-2: The intervertebral disc is normal. Minor right and mild left facet arthropathy is present. T here is no central canal stenosis or foraminal stenosis. L2-3: The intervertebral disc is normal. L3-4: There is a minor disc bulge with endplate osteophytes and a small central disc extrusion and e nhancing annular tear that is slightly asymmetric to the right. This minimally effaces the ventral t hecal sac. Minor bilateral facet arthropathy is present. There is minor left greater than right shashank ral foraminal stenosis. There is no central canal stenosis. L4-5: There is a diffuse disc osteophyte complex with a more focal left paracentral component that n arrows the inferior neural foramina bilaterally, greater on the right and encroaches on the exiting r ight L4 nerve. The medial left L4-5 facet is smaller than the right and there is absence of the liga mentum flavum and irregularity and possible focal discontinuity in the medial left L4 lamina. These findings are suggestive of a previous left L4-5 microdiskectomy and minor enhancing soft tissue signa l is present in the left lateral recess and epidural space partially surrounding the left L5 nerve. There is mild to moderate right and moderate left hypertrophic facet arthropathy and ligamentum flavu m hypertrophy. There is mild right and mild-moderate left neural foraminal stenosis. There is no ce ntral canal stenosis. L5-S1: There is a small disc bulge with endplate osteophytes and mild bilateral facet arthropathy an d ligamentum flavum hypertrophy with a small left facet effusion. There is mild to moderate bilatera l foraminal stenosis. There is tapering of the thecal sac which ends at S1-2. IMPRESSION: 1. The nerve roots are clumped together from L3 to S1 without abnormal enhancement. This raises the possibility of arachnoiditis. 2. Moderate mild lower lumbar levoscoliosis with 2 mm rightward translation of L4 with respect to L3 5 mm rightward translation of L5 with respect to L4. This is associate with moderate discogenic dis ease at L4-5 and extensive type 2 endplate change suggestive of chronic increased stress at this leve l. 3. Prior left L4-5 microdiskectomy changes with minor enhancing granulation tissue in the left later al recess partially surrounding left L5 nerve. 4. Small central disc herniation L3-4. 5. Mild to moderate left L4-5 and mild to moderate bilateral L5-S1 neural foraminal stenosis.
== END 2018-07-11 14:08 | disposition home or self-care (01) ==
LOC: RAD 14:07
PROVIDERS: ATTEND Pain Medicine Interventional Pain Medicine
DX: M51.16 Intervertebral disc disorders with radiculopathy, lumbar region (principal); M51.17 Intervertebral disc disorders with radiculopathy, lumbosacral region; M48.02 Spinal stenosis, cervical region; M48.03 Spinal stenosis, cervicothoracic region; M50.31 Other cervical disc degeneration, high cervical region; M50.321 Other cervical disc degeneration at C4-C5 level; M50.322 Other cervical disc degeneration at C5-C6 level; M50.323 Other cervical disc degeneration at C6-C7 level; M50.33 Other cervical disc degeneration, cervicothoracic region; M47.812 Spondylosis without myelopathy or radiculopathy, cervical region; M47.813 Spondylosis without myelopathy or radiculopathy, cervicothoracic region

== ENCOUNTER 2018-07-22 10:48 | Outpatient (CLI) ==
--- NOTE | 2018-07-22 11:35 | CT ---
EXAM: CT ABDOMEN AND PELVIS HISTORY: Hydronephrosis TECHNIQUE: CT abdomen and pelvis without intravenous contrast. Images were reconstructed using 3 mm section thickness. Reformations were prepared. COMPARISON: 06/24/2018 FINDINGS: There is moderate bilateral hydronephrosis, increased since previous exam. The ureters are dilated. No renal or ureteral calculi are identified. Urinary bladder is moderately distended with circumfer ential wall thickening. There is a probable upper right renal cortical cyst measuring about 2.7 cm w hich can be correlated with renal ultrasound. Within limits of this unenhanced exam, no focal hepatic or splenic lesions were identified. Gallblad elaine and pancreas are within normal limits. No adrenal mass. Normal abdominal aorta. Normal stomach and appendix. There is no evidence of bowel obstruction. Uterus is present. A few cystic masses o f the right adnexa largest 2.7 cm probably represent either ovarian follicles or cysts and can be cor related with ultrasound. There is no ascites. Ventral abdominal wall is intact. Bones are within n ormal limits. Lung bases are clear. IMPRESSION: 1. Bilateral hydronephrosis, worsened since previous exam and currently moderate. Ureteral dilatati on. Urinary bladder wall thickening circumferentially. No stones are seen. Etiology of the obstruc tion is uncertain. Probable right renal cyst. Urologic consultation is recommended. 2. Small right adnexal cysts.
== END 2018-07-22 10:49 | disposition home or self-care (01) ==
LOC: RAD 10:48
PROVIDERS: ATTEND Urology
DX: N13.30 Unspecified hydronephrosis (principal)
CPT/HCPCS: 36415; 82565; 84520

== ENCOUNTER 2018-08-04 08:37 | Outpatient (CLI) | END 2018-08-04 08:38 | disposition home or self-care (01) | LOC: LAB 08:37 | PROVIDERS: ATTEND Urology | DX: N13.30 Unspecified hydronephrosis (principal) | CPT/HCPCS: 36415; 80048 ==

== ENCOUNTER 2018-10-06 11:40 | Outpatient (CLI) | END 2018-10-06 11:41 | disposition home or self-care (01) | LOC: LAB 11:40 | PROVIDERS: ATTEND Urology | DX: N28.9 Disorder of kidney and ureter, unspecified (principal) | CPT/HCPCS: 36415; 80048 ==